=== PATIENT | female | born 1990 | race Caucasian/White ===

== ENCOUNTER 2016-12-04 11:32 | Emergency (ER) | payer OTHER ==
[~2016-12-04 11:32] MED LIST: PRAMET FA TAB1 EA PO
[2016-12-04 12:47] LABS: HEMOGLOBIN 14.7 gm/dl (12.3-15.3); RED BLOOD COUNT 4.83 M/UL (4.00-5.10); WHITE BLOOD COUNT 15.1 K/UL (4.5-11.0)
[2016-12-04 12:55] LABS: BUN/CREATININE RATIO 25 (0-10)
== END 2016-12-04 15:49 | disposition home or self-care (01) ==
LOC: ER1 11:32
PROVIDERS: Physician Assistant Medical
DX: K05.219 Aggressive periodontitis, localized, unspecified severity (principal); F17.210 Nicotine dependence, cigarettes, uncomplicated
CPT/HCPCS: 36415; 70487; 80053; 81001; 84703; 85025; 96374; 96375; 99284; J1885; J7050; Q9962